=== PATIENT | female | born 1935 ===

== ENCOUNTER 2021-05-10 10:06 | Emergency (ER) | payer OTHER ==
[~2021-05-10] VITALS: Ht 149.9 cm; Wt 40.8 kg
[2021-05-10] MEDS ORDERED: KEPPRA500 MG PO (10:33)
[2021-05-10] MEDS ORDERED: NAMENDA10 MG PO (10:34)
[2021-05-10] MEDS ORDERED: VITAMIN B-121000 MC2 SL (10:35)
[2021-05-10] MEDS ORDERED: ELIQUIS2.5 MG PO (11:20)
== END 2021-05-10 11:21 | disposition home or self-care (01) ==
LOC: ER 10:06
DX: I82.492 Acute embolism and thrombosis of other specified deep vein of left lower extremity (principal); G30.9 Alzheimer's disease, unspecified; Z74.01 Bed confinement status

== ENCOUNTER 2023-01-01 21:30 | Inpatient (IN) | payer OTHER ==
[~2023-01-01] VITALS: Ht 157.5 cm; Wt 54.4 kg
[~2023-01-01 21:30] MED LIST: ELIQUIS2.5 MG PO; KEPPRA500 MG PO; NAMENDA10 MG PO; VITAMIN B-121000 MC2 SL
== END 2023-01-11 14:46 | disposition expired | DRG 189 ==
LOC: ER 21:30 → MEDJ 01-02 14:20 → SEC-K 01-02 21:01 → MEDJ 01-03 10:07
PROVIDERS: ADMIT Internal Medicine; ATTEND Internal Medicine
PROC: 4A12X4Z Monitoring of Cardiac Electrical Activity, External Approach (ICD-10-PCS; principal; 2023-01-02)
PROC: B24BYZZ Ultrasonography of Heart with Aorta using Other Contrast (ICD-10-PCS; 2023-01-02)
PROC: B54CZZZ Ultrasonography of Left Lower Extremity Veins (ICD-10-PCS; 2023-01-02)
PROC: 5A09457 Assistance with Respiratory Ventilation, 24-96 Consecutive Hours, Continuous Positive Airway Pressure (ICD-10-PCS; 2023-01-02)
PROC: 02HV33Z Insertion of Infusion Device into Superior Vena Cava, Percutaneous Approach (ICD-10-PCS; 2023-01-07)
DX: J96.01 Acute respiratory failure with hypoxia (principal); J69.0 Pneumonitis due to inhalation of food and vomit; N17.8 Other acute kidney failure; E87.0 Hyperosmolality and hypernatremia; J42 Unspecified chronic bronchitis; E87.6 Hypokalemia; E83.39 Other disorders of phosphorus metabolism; I50.9 Heart failure, unspecified; D63.8 Anemia in other chronic diseases classified elsewhere; G40.909 Epilepsy, unspecified, not intractable, without status epilepticus; G30.9 Alzheimer's disease, unspecified; F02.80 Dementia in other diseases classified elsewhere, unspecified severity, without behavioral disturbance, psychotic disturbance, mood disturbance, and anxiety; Z66 Do not resuscitate; Z74.01 Bed confinement status; Z86.16 Personal history of COVID-19